=== PATIENT | male | born 1980 | race Caucasian/White ===

== ENCOUNTER 2025-05-24 06:44 | Emergency (ER) | payer OTHER, SELFPAY ==
[2025-05-24 06:46] VITALS: PULSE 62
[2025-05-24 06:50] VITALS: BMI 26.1
[2025-05-24 06:53] VITALS: BP 118/79; PULSE 63; RESP 18; TEMP 36.7; O2SAT 97
--- NOTE | 2025-05-24 06:54 | EKG_ITS ---
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
--- NOTE | 2025-05-24 07:45 | XR_ITS ---
Exam: Chest portable single view Technique: AP portable chest semi upright single view Date: 05/24/2025 0813 hrs Indications: Chest pain this am Findings: Normal heart size. Lungs are clear Osseous structures intact Impression: No active disease
[2025-05-24 08:05] VITALS: BP 106/73; PULSE 54; RESP 16; TEMP 36.7; O2SAT 98
[2025-05-24 08:09] VITALS: BP 103/71; BP 106/73; BP 97/74; PULSE 53; PULSE 58; PULSE 68
[2025-05-24 08:23] VITALS: PULSE 61
[2025-05-24 08:29] LABS: Basophils # (Auto) 0.1 Thou/mm3 (0.0-0.2); Basophils % (Auto) 1 % (0-2.5); Eosinophils # (Auto) 0.1 Thou/mm3 (0.0-0.5); Eosinophils % (Auto) 1 % (0-10); Hematocrit 42.8 % (41.0-53.0); Hemoglobin 14.7 g/dL (13.5-16.0); Immature Granulocytes Auto 0.03 Thou/mm3 (0.00-0.00); Lymphocytes # (Auto) 2.9 Thou/mm3 (1.0-4.8); Lymphocytes % (Auto) 36 % (10-50); Mean Corpuscular HGB Conc 34.3 g/dl (31.0-37.0); Mean Corpuscular Hemoglobin 31.3 pg (25.0-35.0); Mean Corpuscular Volume 91 fL (80-100); Monocytes # (Auto) 0.9 Thou/mm3 (0.0-0.8); Monocytes % (Auto) 11 % (0-12); Neutrophils # (Auto) 4.2 Thou/mm3 (1.8-7.7); Neutrophils % (Auto) 52 % (37-80); Nucleated Red Blood Cell # 0.00 Thou/mm3 (0.00-0.00); Nucleated Red Blood Cell % 0 /100 WBC (0); Platelet Count 286 Thou/mm3 (140-440); RDW Standard Deviation 44.0 fL (35.1-43.9); Red Blood Count 4.69 Miln/mm3 (4.50-5.90); White Blood Count 8.1 Thou/mm3 (3.8-10.6)
[2025-05-24 08:42] LABS: Alanine Aminotransferase 13 U/L (10-49); Albumin, Serum 3.9 gm/dL (3.5-5.0); Albumin/Globulin Ratio 1.9 (1.2-2.2); Alkaline Phosphatase 72 U/L (46-116); Anion Gap 9 (7-16); Aspartate Amino Transferase 17 U/L (0-34); BUN/Creatinine Ratio 14 Ratio (12-20); Bilirubin,Total 0.5 mg/dL (0.3-1.2); Blood Urea Nitrogen 14 mg/dL (9-23); Calcium 9.3 mg/dL (8.3-10.6); Calcium (Corrected) 9.4 mg/dL (8.5-10.1); Carbon Dioxide 24.0 mMol/L (20.0-31.0); Chloride 109 mMol/L (98-107); Creatinine (Component) 1.0 mg/dL (0.6-1.3); Estimated Creatinine Clearance 92.3 mL/min (>60); Globulin 2.1 gm/dL (2.3-3.5); Glucose 84 mg/dL (74-106); Magnesium 1.7 mg/dL (1.6-2.6); Osmolality,Calculated 282 (275-295); Potassium 4.0 mMol/L (3.4-5.1); Sodium 142 mMol/L (136-145); Total Protein 6.0 gm/dL (5.7-8.2); Troponin I < 0.002 ng/mL (0.0-0.045); eGFR > 60 See Note
[2025-05-24 09:07] LABS: B-Type Natriuretic Peptide 28 pg/mL (0-100)
[2025-05-24 09:54] VITALS: BP 105/78; PULSE 59; O2SAT 96
== END 2025-05-24 09:55 ==
PROVIDERS: Emergency Provider Emergency Medicine; PCP Internal Medicine
DX: R55 Syncope and collapse (principal); R07.9 Chest pain, unspecified; I49.8 Other specified cardiac arrhythmias
CPT/HCPCS: 36415; 71045; 80053; 83735; 83880; 84484; 85025; 93005; 99284